=== PATIENT | female | born 1980 | race Caucasian/White ===

== ENCOUNTER 2017-02-06 02:38 | Emergency (ER) | payer SELFPAY ==
[~2017-02-06] VITALS: Ht 162.6 cm; Wt 77.0 kg
[~2017-02-06 02:38] MED LIST: HYDR-762 PO; IBUP800T25 PO; ONDA4TAB35 PO
[2017-02-06 02:43] VITALS: Ht 162.6 cm; Wt 77.0 kg
[2017-02-06] MEDS ORDERED: SOD CHLORIDE 0.9% 1,000 ML IV STA (03:42)
[2017-02-06] MEDS ORDERED: KETOROLAC 15 MG INJ IV STA (03:42)
[2017-02-06] MEDS ORDERED: LIDOCAINE/MYLANTA 40 ML BTL PO STA (03:42)
[2017-02-06] MEDS ORDERED: BELLADONNA/PHENOBARBITAL TAB PO STA (03:42)
[2017-02-06] MEDS ORDERED: ONDANSETRON 4 MG INJ IV STA (03:42)
[2017-02-06] MEDS ORDERED: FAMOTIDINE 20 MG TAB PO STA (03:42)
[2017-02-06 03:57] LABS: ADD SCAN DIFF NO
[2017-02-06 03:58] LABS: BASOPHILS % 0.1 % (0.0-2.0); EOSINOPHILS % 0.3 % (0.0-7.0); HEMATOCRIT 35.4 % (37.0-47.0); HEMOGLOBIN 11.8 g/dl (12.0-16.0); LYMPHOCYTES # 1.1 10^3/ul (0.8-2.9); LYMPHOCYTES % 12.4 % (15.0-51.0); MEAN CORPUSCULAR HEMOGLOBIN 29.6 pg (29.0-33.0); MEAN CORPUSCULAR HGB CONC 33.3 g/dl (32.0-37.0); MEAN CORPUSCULAR VOLUME 88.7 fl (82.0-101.0); MEAN PLATELET VOLUME 10.2 fl (7.4-10.4); MONOCYTE # 0.4 10^3/ul (0.3-0.9); MONOCYTES % 4.6 % (0.0-11.0); NEUTROPHIL # 7.6 10^3/ul (1.6-7.5); NEUTROPHILS % 82.2 % (39.0-77.0); PLATELET COUNT 286 10^3/UL (140-415); RED BLOOD COUNT 3.99 10^6/ul (4.20-5.40); WHITE BLOOD COUNT 9.2 10^3/ul (4.8-10.8)
[2017-02-06] MEDS ORDERED: IBUP200C PO (04:35)
[2017-02-06 04:38] LABS: ALBUMIN 3.9 g/dl (3.3-4.9)
[2017-02-06 04:39] LABS: POTASSIUM 3.6 mmol/L (3.5-5.1)
[2017-02-06 04:41] LABS: BILIRUBIN,INDIRECT 0.5 mg/dl (0-1.1); BILIRUBIN,TOTAL 0.5 mg/dl (0.2-1.3); CREATININE 0.66 mg/dl (0.44-1.00)
[2017-02-06 04:42] LABS: ALBUMIN/GLOBULIN RATIO 1.08; TOTAL PROTEIN 7.5 g/dl (6.1-8.1)
[2017-02-06] MEDS ORDERED: IBUP-1542 PO (05:22)
[2017-02-06] MEDS ORDERED: OXYC-279 PO (05:22)
[2017-02-06] MEDS ORDERED: ONDA4TAB8 PO (05:22)
[2017-02-06 05:25] VITALS: BP 119/79; PULSE 70; RESP 18; TEMP 98.3
--- NOTE | 2017-02-06 05:38 | ERD ---
ER Documentation Chief Complaint Date/Time DATE: 02/06/17 TIME: 05:34 Chief Complaint RUQ abd pain since 4 hours ago vomited 2x HPI 36-year-old woman complains of right upper quadrant abdominal pain similar previous episodes, she does have a history of cholelithiasis and a recent ultrasound about 2 weeks ago. She states the pain is in the right upper quadrant colicky, nonexertional, nonradiating. She has had some nausea and vomiting 2, clear nonbloody and nonbilious. She has had no diarrhea, no fevers or chills, no chest pain or shortness of breath. She has not used anything at home for her pain. ROS All systems reviewed and are negative except as per history of present illness. Medications Home Meds Active Scripts Oxycodone HCl/Acetaminophen (Percocet 5-325 mg Tablet) 1 Each Tablet, 1 EACH PO TID for PAIN LEVEL 6-10, #12 TAB Prov:DAVID AHMADI MD 02/06/17 Ondansetron Hcl* (Zofran*) 4 Mg Tablet, 4 MG PO Q8H Y for NAUSEA AND/OR VOMITING , #15 TAB Prov:DAVID AHMADI MD 02/06/17 Ibuprofen* (Ibuprofen*) 600 Mg Tablet, 600 MG PO Q8 for PAIN, #30 TAB Prov:DAVID AHMADI MD 02/06/17 Reported Medications Ibuprofen* (Ibuprofen*) 200 Mg Capsule, 400 MG PO TID Y for PAIN, CAP 02/06/17 Discontinued Scripts Ibuprofen* (Motrin*) 800 Mg Tab, 800 MG PO Q6H Y for PAIN AND OR ELEVATED TEMP, #30 TAB Prov:TONG GALARZA MD 02/19/16 Ondansetron Hcl* (Zofran* ODT) 4 mg -ODT Tab.disper, 4 MG PO Q6 Y for NAUSEA AND /OR VOMITING, #30 TAB Prov:TONG GALARZA MD 02/19/16 Hydrocodone Bit-Acetaminophen* ([place]*) 10-325 Mg Tablet, 1 TAB PO Q6 Y for PAIN , #12 TAB Prov:TONG GALARZA MD 02/19/16 Allergies Allergies: Coded Allergies: No Known Allergy (Unverified , 02/06/17) PMhx/Soc Cholelithiasis History of Surgery: No Anesthesia Reaction: No Hx Neurological Disorder: No Hx Respiratory Disorders: No Hx Cardiac Disorders: No Hx Psychiatric Problems: No Hx Miscellaneous Medical Probl: Yes (GALLSTONES ) Hx Alcohol Use: No Hx Substance Use: No Hx Tobacco Use: No Smoking Status: Never smoker FmHx Family History: No diabetes Physical Exam Vitals Vital Signs Date Time Temp Pulse Resp B/P Pulse Ox O2 Delivery O2 Flow Rate FiO2 02/06/17 05:25 98.3 70 18 119/79 100 Room Air 02/06/17 03:40 98.2 71 17 114/83 100 Room Air 02/06/17 02:43 98.6 80 20 123/75 98 Physical Exam GENERAL: Well-developed, well-nourished, moderate discomfort HEENT: Moist mucous membranes, pink conjunctiva, no cervical spine tenderness or step-off deformities, no goiter, no jaundice or icterus, extraocular movements intact without pain. No submandibular induration, and no pharyngeal erythema NEURO: Alert and oriented 3, cranial nerves II through XII intact bilaterally, pupils equal round reactive to light, no focal deficits or facial asymmetry, sensation intact distally Strength 5/5 in upper and lower extremities bilaterally CARDIAC: Regular rate and rhythm, no murmurs rubs or gallops LUNGS: Clear bilaterally no wheezing crackles or stridor ABDOMEN: Soft nontender, no guarding, no rigidity, no rebound, no psoas sign no obturator sign. Normoactive bowel sounds SKIN: Warm and dry to touch, no abrasions, contusions, or hematomas, no lacerations, no ecchymosis, no target lesions, and without ulcers EXTREMITIES: No clubbing cyanosis or edema, calves are bilaterally symmetrical, no Homans sign, no popliteal cord sign. Distal pulses equal and bilateral PSYCH: Normal affect without agitation or irritability Result Diagram: 02/06/178 02/06/17 0348 Results 24 hrs Laboratory Tests Test 02/06/17 03:48 White Blood Count 9.210^3/ul Red Blood Count 3.9910^6/ul Hemoglobin 11.8g/dl Hematocrit 35.4% Mean Corpuscular Volume 88.7fl Mean Corpuscular Hemoglobin 29.6pg Mean Corpuscular Hemoglobin Concent 33.3g/dl Red Cell Distribution Width 13.0% Platelet Count 81934^3/UL Mean Platelet Volume 10.2fl Neutrophils % 82.2% Lymphocytes % 12.4% Monocytes % 4.6% Eosinophils % 0.3% Basophils % 0.1% Nucleated Red Blood Cells % 0.0/100WBC Neutrophils # 7.610^3/ul Lymphocytes # 1.110^3/ul Monocytes # 0.410^3/ul Eosinophils # 0.010^3/ul Basophils # 0.010^3/ul Nucleated Red Blood Cells # 0.010^3/ul Sodium Level 139mmol/L Potassium Level 3.6mmol/L Chloride Level 99mmol/L Carbon Dioxide Level 26mmol/L Anion Gap 18 Blood Urea Nitrogen 8mg/dl Creatinine 0.66mg/dl Glucose Level 129mg/dl Calcium Level 9.0mg/dl Total Bilirubin 0.5mg/dl Direct Bilirubin 0.00mg/dl Indirect Bilirubin 0.5mg/dl Aspartate Amino Transf (AST/SGOT) 34IU/L Alanine Aminotransferase (ALT/SGPT) 72IU/L Alkaline Phosphatase 65IU/L Total Protein 7.5g/dl Albumin 3.9g/dl Globulin 3.60g/dl Albumin/Globulin Ratio 1.08 Lipase 49U/L Current Medications Medications (Trade) Dose Ordered Sig/Sol Route PRN Reason Start Time Stop Time Status Last Admin Dose Admin Sodium Chloride (NS) 1,000 ml @ 1,000 mls/hr Q1H STAT IV 02/06/17 03:42 02/06/17 04:41 DC 02/06/17 03:58 Ondansetron HCl (Zofran Inj) 4 mg ONCE STAT IV 02/06/17 03:42 02/06/17 03:44 DC 02/06/17 03:58 Famotidine (Pepcid) 40 mg ONCE STAT PO 02/06/17 03:42 02/06/17 03:44 DC 02/06/17 03:58 Miscellaneous Medication (Gi Cocktail (2)) 40 ml ONCE STAT PO 02/06/17 03:42 02/06/17 03:44 DC 02/06/17 03:58 Belladonna/ Phenobarbital () 2 tab ONCE STAT PO 02/06/17 03:42 02/06/17 03:44 DC 02/06/17 03:58 Ketorolac Tromethamine (Toradol) 15 mg ONCE STAT IV 02/06/17 03:42 02/06/17 03:44 DC 02/06/17 03:58 Procedures/MDM IV line was established patient was placed on cardiac cath rn rhythm strip revealed a sinus rhythm at about 80 bpm with upright P and T waves. Patient was afebrile. I administered 1 L normal saline intravenously, Maalox suspension 50 cc p.o., famotidine 40 mg p.o., and Toradol 15 mg IV with good pain control. For nausea administer Zofran 4 mg IV. CBC and electrolytes were unremarkable, liver function tests are normal. Differential diagnoses considered, included but not limited to acute coronary syndrome, pulmonary embolism, aortic dissection, abdominal aortic aneurysm, sepsis, stroke, meningitis, encephalitis, pneumonia, appendicitis, cholecystitis , bowel obstruction, pyelonephritis, nephrolithiasis, cystitis, as well as metabolic, hematologic, and electrolyte abnormalities. As well as abscess, cellulitis, fractures, and dislocations. Patient feels much better at this time, and vital signs are normal, symptoms have improved. I did give strict instructions to return to the ED if symptoms continue or worsen, patient will otherwise follow-up with primary care physician. Patient understood instructions and agreed to plan. Departure Diagnosis: Primary Impression: Cholelithiasis Cholelithiasis location: gallbladder Cholecystitis presence: without cholecystitis Biliary obstruction: without biliary obstruction Qualified Code : K80.20 - Calculus of gallbladder without cholecystitis without obstruction Condition: Good Patient Instructions: Gallstones DAVID AHMADI MD February 06, 2017 05:38
== END 2017-02-06 05:25 | disposition home or self-care (01) ==
LOC: E/R 02:38
DX: K80.20 Calculus of gallbladder without cholecystitis without obstruction (principal); R11.2 Nausea with vomiting, unspecified
CPT/HCPCS: 36415; 80053; 83690; 85025; 96361; 96374; 96375; 99284; J1885; J2405; J7030